=== PATIENT | male | born 1980 | race Two or more races ===

== ENCOUNTER 2023-08-26 13:37 | Inpatient (IN) | payer OTHER ==
[2023-08-26 14:30] VITALS: BMI 22.9
[2023-08-26] MEDS ORDERED: NALOXONE HCL (KLOXXADO) 8 MG SPRAY NS PRN (17:01)
[2023-08-26] MEDS ORDERED: ACETAMINOPHEN 325 MG TABLET (FP) PO PRN (17:01)
[2023-08-26] MEDS ORDERED: POLYETHYLENE GLYCOL (HEALTHYLAX) 3350 17 GM PACKET PO PRN (17:01)
[2023-08-26] MEDS ORDERED: BENZOCAINE/MENTHOL (CHLORASEPTIC ) LOZENGE MM PRN (17:01)
[2023-08-26] MEDS ORDERED: guaiFENesin 600 MG TABLET.ER (FP) PO PRN (17:01)
[2023-08-26] MEDS ORDERED: MAGNESIUM HYDROX 2400MG/30ML ORAL SUSPENSION 30 ML CUP PO PRN (17:01)
[2023-08-26] MEDS ORDERED: NALOXONE HCL 0.4 MG/ML VIAL IM PRN (17:01)
[2023-08-26] MEDS ORDERED: IBUPROFEN 400 MG TABLET (FP) PO PRN (17:01)
[2023-08-26] MEDS ORDERED: BENZONATATE 200 MG CAPSULE PO PRN (17:01)
[2023-08-26] MEDS ORDERED: ALBUTEROL SO4 HFA INHALER IH PRN (17:03)
[2023-08-26] MEDS: MELATONIN 5 MG TABLETS PO SCH (21:49)
[2023-08-26] MEDS: THIAMINE 100 MG TABLET PO SCH (21:49)
[2023-08-27] MEDS: METHOCARBAMOL 500 MG TABLET PO PRN (01:16)
[2023-08-27] MEDS: IBUPROFEN 600 MG TABLET (FP) PO PRN (01:16)
[2023-08-27] MEDS ORDERED: cloNIDine HCL 0.1 MG TABLET PO PRN (03:24)
[2023-08-27] MEDS: methaDONE HCL 10 MG TABLET (FOR DETOX USE ONLY) PO ONE ×2 (03:50→12:27)
[2023-08-27] MEDS: PRENATAL VITAMINS W/ FOLIC ACID TABLET (FP) PO SCH (09:52)
[2023-08-27 11:50] LABS: HEMATOCRIT 38.8 % (35.4-49); HEMOGLOBIN 12.4 GM/dL (11.7-16.9); MCH 23.3 pg (25.7-33.7); MCHC 31.9 g/dl (32.0-35.9); MEAN CELL VOLUME 73.1 fl (80-96); MEAN PLT VOLUME 7.7 fl (7.5-11.1); PLATELET COUNT 344 10^3/uL (134-434); RBC 5.31 M/mm3 (4.00-5.60); RDW 17.9 % (11.9-15.9); WHITE BLOOD COUNT 6.4 K/mm3 (4.0-10.0)
[2023-08-27 12:27] LABS: CHLORIDE 109 mmol/L (98-107); POTASSIUM 4.3 mmol/L (3.5-5.1); SODIUM 143 mmol/L (136-145)
[2023-08-27 12:33] LABS: ALBUMIN 2.9 g/dl (3.4-5.0); ANION GAP 4 mmol/L (4-13); BLOOD UREA NITROGEN 13.8 mg/dL (7-18); CO2 30 mmol/L (21-32); GLUCOSE,RANDOM 106 mg/dL (74-106)
[2023-08-27 12:34] LABS: TOT PROT 7.8 g/dl (6.4-8.2)
[2023-08-27 12:36] LABS: CREATININE 0.5 mg/dL (0.55-1.3); SGOT/AST 11 U/L (15-37); SGPT/ALT 24 U/L (13-61)
[2023-08-27 12:37] LABS: BILIRUBIN,TOTAL 0.2 mg/dL (0.2-1)
[2023-08-27 12:38] LABS: ALK PHOS 86 U/L (45-117)
[2023-08-27] MEDS: diazePAM 5 MG TABLET PO PRN (18:36)
[2023-08-27] MEDS: NICOTINE POLACRILEX 2 MG GUM BUC PRN (19:34)
[2023-08-28] MEDS: cloNIDine HCL 0.1 MG TABLET PO SCH (10:03)
[2023-08-28] MEDS: methaDONE HCL 10 MG TABLET PO ONE (10:03)
[2023-08-28] MEDS: NICOTINE 14 MG/24 HOURS TOPICAL PATCH TD SCH (10:04)
[2023-08-29] MEDS: methaDONE 40 MG, methaDONE 10 MG PO ONE (09:17)
[2023-08-29] MEDS ORDERED: methaDONE HCL 10 MG TABLET (FOR DETOX USE ONLY) PO ONE (10:00)
[2023-08-29] MEDS: GABAPENTIN 100 MG CAPSULE PO ONE (16:33)
[2023-08-29] MEDS: DICYCLOMINE HCL 10 MG CAPSULE PO PRN (19:45)
[2023-08-29] MEDS: LOPERAMIDE HCL 2 MG CAPSULE PO PRN (19:45)
[2023-08-29] MEDS: GABAPENTIN 100 MG CAPSULE PO SCH (23:22)
[2023-08-30] MEDS ORDERED: cloNIDine HCL 0.1 MG TABLET PO PRN
[2023-08-30] MEDS: methaDONE 40 MG, methaDONE 20 MG PO ONE (09:42)
[2023-08-30] MEDS: cloNIDine HCL 0.1 MG TABLET PO PRN (17:44)
[2023-08-30] MEDS: ONDANSETRON *ODT* 4 MG TABLET SL PRN (23:25)
[2023-08-31] MEDS: methaDONE 40 MG, methaDONE 30 MG PO ONE (09:09)
[2023-08-31] MEDS ORDERED: methaDONE HCL 10 MG TABLET (FOR DETOX USE ONLY) PO ONE (10:00)
[2023-08-31] MEDS: NICOTINE 21 MG/24 HOURS TOPICAL PATCH TD SCH (10:52)
[2023-08-31 12:34] LABS: HIV INTERPRETATION NEGATIVE (NEGATIVE)
[2023-08-31] MEDS: BISMUTH SUBSALICYLATE 524 MG/30 ML PO PRN (19:19)
[2023-08-31] MEDS: MAG HYDROX/AL HYDROX/SIMETH 30 ML UNIT-DOSE CUP PO PRN (20:30)
[2023-09-01] MEDS: methaDONE HCL 40 MG DISPERSABLE TABLET PO ONE (09:32)
[2023-09-01] MEDS: hydrOXYzine PAMOATE 25 MG CAPSULE (FP) PO PRN (21:52)
[2023-09-02 06:52] VITALS: BP 109/72; PULSE 88; RESP 16; TEMP 98.6
[2023-09-02] MEDS: methaDONE 80 MG, methaDONE 10 MG PO ONE (09:17)
== END 2023-09-02 09:50 | disposition home or self-care (01) | DRG 773 ==
LOC: YASAS 13:37 → Y3N 16:44
PROVIDERS: ADMIT Allergy & Immunology; ATTEND Surgery
PROC: HZ2ZZZZ Detoxification Services for Substance Abuse Treatment (ICD-10-PCS; principal; 2023-08-26)
DX: F11.23 Opioid dependence with withdrawal (principal); F14.20 Cocaine dependence, uncomplicated; F17.210 Nicotine dependence, cigarettes, uncomplicated; F41.9 Anxiety disorder, unspecified; J45.909 Unspecified asthma, uncomplicated; Z86.718 Personal history of other venous thrombosis and embolism; Z86.69 Personal history of other diseases of the nervous system and sense organs; Z59.00 Homelessness unspecified
CPT/HCPCS: 36415; 80053; 80305; 80307; 85027; 86780; 87389; 93005; 93010; Q0162

== ENCOUNTER 2024-01-21 13:39 | Inpatient (IN) | payer OTHER ==
[2024-01-21 14:29] VITALS: BMI 21.8
[2024-01-21] MEDS ORDERED: hydrOXYzine PAMOATE 25 MG CAPSULE (FP) PO PRN (16:04)
[2024-01-21] MEDS ORDERED: BISMUTH SUBSALICYLATE 524 MG/30 ML PO PRN (16:04)
[2024-01-21] MEDS ORDERED: MAGNESIUM HYDROX 2400MG/30ML ORAL SUSPENSION 30 ML CUP PO PRN (16:04)
[2024-01-21] MEDS ORDERED: IBUPROFEN 400 MG TABLET (FP) PO PRN (16:04)
[2024-01-21] MEDS ORDERED: DICYCLOMINE HCL 10 MG CAPSULE PO PRN (16:04)
[2024-01-21] MEDS ORDERED: LOPERAMIDE HCL 2 MG CAPSULE PO PRN (16:04)
[2024-01-21] MEDS ORDERED: ACETAMINOPHEN 325 MG TABLET (FP) PO PRN (16:04)
[2024-01-21] MEDS ORDERED: NALOXONE (NARCAN) HCL 4 MG/0.1 ML SPRAY NS PRN (16:04)
[2024-01-21] MEDS ORDERED: MAG HYDROX/AL HYDROX/SIMETH 30 ML UNIT-DOSE CUP PO PRN (16:04)
[2024-01-21] MEDS ORDERED: BENZONATATE 200 MG CAPSULE PO PRN (16:04)
[2024-01-21] MEDS ORDERED: ONDANSETRON *ODT* 4 MG TABLET SL PRN (16:04)
[2024-01-21] MEDS ORDERED: guaiFENesin 600 MG TABLET.ER (FP) PO PRN (16:04)
[2024-01-21] MEDS ORDERED: BENZOCAINE/MENTHOL (CHLORASEPTIC ) LOZENGE MM PRN (16:04)
[2024-01-21] MEDS ORDERED: POLYETHYLENE GLYCOL (HEALTHYLAX) 3350 17 GM PACKET PO PRN (16:04)
[2024-01-22] MEDS: THIAMINE 100 MG TABLET PO SCH (01:08)
[2024-01-22] MEDS: PRENATAL VITAMINS W/ FOLIC ACID TABLET (FP) PO SCH (01:08)
[2024-01-22] MEDS: MELATONIN 5 MG TABLETS PO SCH (01:08)
[2024-01-22] MEDS: methaDONE HCL 10 MG TABLET PO ONE (11:07)
[2024-01-22 12:26] LABS: HEMOGLOBIN 13.1 GM/dL (11.7-16.9); MCH 24.7 pg (25.7-33.7); MCHC 31.3 g/dl (32.0-35.9); MEAN CELL VOLUME 78.9 fl (80-96); MEAN PLT VOLUME 7.9 fl (7.5-11.1); PLATELET COUNT 340 10^3/uL (134-434); RBC 5.32 M/mm3 (4.00-5.60); RDW 16.7 % (11.9-15.9); WHITE BLOOD COUNT 5.8 K/mm3 (4.0-10.0)
[2024-01-22] MEDS ORDERED: methaDONE HCL 10 MG TABLET PO PRN (12:48)
[2024-01-22 13:08] LABS: CHLORIDE 108 mmol/L (98-107); SODIUM 141 mmol/L (136-145)
[2024-01-22 13:10] LABS: ALBUMIN 3.2 g/dl (3.4-5.0); ANION GAP 4 mmol/L (4-13); CALCIUM 9.5 mg/dL (8.5-10.1); CO2 29 mmol/L (21-32); GLUCOSE,RANDOM 106 mg/dL (74-106)
[2024-01-22 13:13] LABS: CREATININE 0.4 mg/dL (0.55-1.3); SGOT/AST 20 U/L (15-37); SGPT/ALT 34 U/L (13-61)
[2024-01-22 13:15] LABS: BILIRUBIN,TOTAL 0.2 mg/dL (0.2-1)
[2024-01-22 13:16] LABS: ALK PHOS 89 U/L (45-117)
[2024-01-22] MEDS: cloNIDine HCL 0.1 MG TABLET PO SCH (13:34)
[2024-01-23] MEDS: methaDONE 40 MG, methaDONE 10 MG PO ONE (09:22)
[2024-01-23] MEDS: NICOTINE 21 MG/24 HOURS TOPICAL PATCH TD SCH (11:11)
[2024-01-23] MEDS: GABAPENTIN 100 MG CAPSULE PO ONE (14:43)
[2024-01-23] MEDS: GABAPENTIN 100 MG CAPSULE PO SCH (22:13)
[2024-01-24] MEDS ORDERED: cloNIDine HCL 0.1 MG TABLET PO PRN
[2024-01-24] MEDS: methaDONE 40 MG, methaDONE 20 MG PO ONE (10:12)
[2024-01-24] MEDS: FLU VACCINE (FLULAVAL) PF 45 MCG/0.5 ML SYRINGE 2024-2025 IM ONE (12:17)
[2024-01-25] MEDS: methaDONE 40 MG, methaDONE 30 MG PO ONE (09:58)
[2024-01-25] MEDS: SUVOREXANT 10 MG TABLET PO PRN (23:12)
[2024-01-26] MEDS: methaDONE HCL 40 MG DISPERSABLE TABLET PO ONE (09:33)
[2024-01-26] MEDS: CEPHALEXIN MONOHYDRATE 500 MG CAPSULE (UD) PO SCH (13:20)
[2024-01-27] MEDS: NALOXONE (NYS OPIOID OVERDOSE PROGRAM) 4 MG/0.1 ML SPRAY NS PRN (09:04)
[2024-01-27] MEDS: methaDONE 80 MG, methaDONE 10 MG PO ONE (10:06)
[2024-01-27] MEDS: IBUPROFEN 600 MG TABLET (FP) PO PRN (15:14)
[2024-01-27] MEDS: METHOCARBAMOL 500 MG TABLET PO PRN (15:15)
[2024-01-27] MEDS ORDERED: ZINC OXIDE 20% TOPICAL OINTMENT 30 GM TUBE TP ONE (16:00)
[2024-01-27] MEDS: ZINC OXIDE 20% TOPICAL OINTMENT 30 GM TUBE TP SCH (16:05)
[2024-01-28] MEDS: methaDONE 80 MG, methaDONE 10 MG PO ONE (12:51)
[2024-01-28 17:22] VITALS: BP 126/75; PULSE 87; RESP 17; TEMP 97.6
== END 2024-01-28 17:07 | disposition other institution (70) | DRG 773 ==
LOC: YASAS 13:39 → Y6N 23:40
PROVIDERS: ADMIT Allergy & Immunology; ATTEND Surgery
PROC: HZ2ZZZZ Detoxification Services for Substance Abuse Treatment (ICD-10-PCS; principal; 2024-01-21)
DX: F11.23 Opioid dependence with withdrawal (principal); F14.20 Cocaine dependence, uncomplicated; F17.210 Nicotine dependence, cigarettes, uncomplicated; F13.20 Sedative, hypnotic or anxiolytic dependence, uncomplicated; F19.282 Other psychoactive substance dependence with psychoactive substance-induced sleep disorder; J45.909 Unspecified asthma, uncomplicated; L03.115 Cellulitis of right lower limb; Z86.718 Personal history of other venous thrombosis and embolism; Z56.0 Unemployment, unspecified; Z59.00 Homelessness unspecified
CPT/HCPCS: 36415; 80053; 80305; 80307; 82962; 85027; 86780; 87811; 90656; 93005; 93010; G0009

== ENCOUNTER 2024-01-21 19:57 | Emergency (ER) | payer OTHER ==
[2024-01-21 20:35] VITALS: BP 162/99; PULSE 72; RESP 16; TEMP 97.1; BMI 24.4
== END 2024-01-21 21:53 | disposition home or self-care (01) ==
LOC: JER 19:57
DX: F14.90 Cocaine use, unspecified, uncomplicated (principal); F11.90 Opioid use, unspecified, uncomplicated
CPT/HCPCS: 99283-25

== ENCOUNTER 2024-01-28 17:15 | Inpatient (IN) | payer OTHER ==
[2024-01-28] MEDS ORDERED: hydrOXYzine PAMOATE 25 MG CAPSULE (FP) PO PRN (18:28)
[2024-01-28] MEDS ORDERED: BENZONATATE 200 MG CAPSULE PO PRN (18:28)
[2024-01-28] MEDS ORDERED: guaiFENesin 600 MG TABLET.ER (FP) PO PRN (18:28)
[2024-01-28] MEDS ORDERED: MAG HYDROX/AL HYDROX/SIMETH 30 ML UNIT-DOSE CUP PO PRN (18:28)
[2024-01-28] MEDS ORDERED: BENZOCAINE/MENTHOL (CHLORASEPTIC ) LOZENGE MM PRN (18:28)
[2024-01-28] MEDS ORDERED: ACETAMINOPHEN 325 MG TABLET (FP) PO PRN (18:28)
[2024-01-28] MEDS ORDERED: MAGNESIUM HYDROX 2400MG/30ML ORAL SUSPENSION 30 ML CUP PO PRN (18:28)
[2024-01-28] MEDS ORDERED: IBUPROFEN 400 MG TABLET (FP) PO PRN (18:28)
[2024-01-28] MEDS ORDERED: NALOXONE HCL 0.4 MG/ML VIAL IVPUSH PRN (18:28)
[2024-01-28] MEDS ORDERED: POLYETHYLENE GLYCOL (HEALTHYLAX) 3350 17 GM PACKET PO PRN (18:28)
[2024-01-28] MEDS ORDERED: METHOCARBAMOL 500 MG TABLET PO PRN (18:28)
[2024-01-28] MEDS ORDERED: NALOXONE (NARCAN) HCL 4 MG/0.1 ML SPRAY NS PRN (18:28)
[2024-01-28] MEDS: GABAPENTIN 100 MG CAPSULE PO SCH (21:22)
[2024-01-28] MEDS: CEPHALEXIN MONOHYDRATE 500 MG CAPSULE (UD) PO SCH (21:22)
[2024-01-28] MEDS: THIAMINE 100 MG TABLET PO SCH (21:22)
[2024-01-28] MEDS: MELATONIN 5 MG TABLETS PO SCH (21:22)
[2024-01-28] MEDS: ZINC OXIDE 20% TOPICAL OINTMENT 30 GM TUBE TP SCH (21:23)
[2024-01-28] MEDS: SUVOREXANT 10 MG TABLET PO ONE (22:52)
[2024-01-29] MEDS: PRENATAL VITAMINS W/ FOLIC ACID TABLET (FP) PO SCH (10:29)
[2024-01-29] MEDS: NICOTINE 14 MG/24 HOURS TOPICAL PATCH TD SCH (10:29)
[2024-01-29] MEDS ORDERED: methaDONE HCL 10 MG TABLET PO SCH (13:00)
[2024-01-29] MEDS: methaDONE 80 MG, methaDONE 10 MG PO SCH (13:26)
[2024-01-29] MEDS: SUVOREXANT 15 MG TABLET PO PRN (21:44)
[2024-01-30] MEDS: LOPERAMIDE HCL 2 MG CAPSULE PO PRN (01:37)
[2024-01-30] MEDS ORDERED: ALBUTEROL SO4 HFA INHALER IH PRN (12:28)
[2024-01-30] MEDS: CLINDAMYCIN PHOSPHATE 1% TOPICAL GEL 30 GM TUBE TP SCH (14:36)
[2024-02-01] MEDS: NICOTINE POLACRILEX 2 MG GUM BUC PRN (10:13)
[2024-02-02] MEDS: NICOTINE 21 MG/24 HOURS TOPICAL PATCH TD SCH (09:43)
[2024-02-02] MEDS: SUVOREXANT 15 MG TABLET PO PRN (21:10)
[2024-02-02] MEDS ORDERED: SUVOREXANT 15 MG TABLET PO PRN (22:00)
[2024-02-03] MEDS: PNEUMOC 20-VAL CONJ-DIP CRM/PF 0.5 ML SYRINGE IM ONE (12:30)
[2024-02-04] MEDS: IBUPROFEN 600 MG TABLET (FP) PO PRN (09:48)
[2024-02-04] MEDS: BACLOFEN 10 MG TABLET (FP) PO SCH (21:29)
[2024-02-05] MEDS: traZODone HCL 100 MG TABLET (FP) PO SCH (21:29)
[2024-02-05] MEDS ORDERED: SUVOREXANT 15 MG TABLET PO PRN (22:00)
[2024-02-06] MEDS: traZODone HCL 50 MG TABLET (FP) PO SCH (21:06)
[2024-02-09] MEDS: traZODone HCL 100 MG TABLET (FP) PO SCH (21:18)
[2024-02-10] MEDS: methaDONE 80 MG, methaDONE 10 MG PO SCH (06:21)
[2024-02-11] MEDS: AMOXICILLIN 500 MG CAPSULE (FP) PO SCH (13:31)
[2024-02-19] MEDS: GABAPENTIN 300 MG CAPSULE PO SCH (15:57)
[2024-02-19] MEDS: NICOTINE POLACRILEX 4 MG GUM BUC PRN (15:59)
[2024-02-19] MEDS: LIDOCAINE PATCH REMOVAL MC SCH (21:06)
[2024-02-19] MEDS: METHYL SALICYLATE/MENTHOL 30 GM TUBE TP SCH (21:06)
[2024-02-20] MEDS: NICOTINE POLACRILEX 4 MG LOZENGE BC PRN (06:13)
[2024-02-20] MEDS: LIDOCAINE 5% TOPICAL PATCH TP SCH (10:43)
[2024-02-22] MEDS: HYDROCORTISONE 0.5% TOPICAL CREAM 30 GM TUBE TP PRN (09:55)
[2024-02-22] MEDS: BENZOCAINE 20 % GEL TUBE MM PRN (13:27)
[2024-02-23 06:58] VITALS: RESP 16
[2024-02-24] MEDS ORDERED: methaDONE HCL 10 MG TABLET PO SCH (06:00)
[2024-02-24] MEDS: methaDONE 80 MG, methaDONE 10 MG PO SCH (06:17)
[2024-02-25 07:47] VITALS: TEMP 97.8
[2024-02-26 06:44] VITALS: BP 109/68; PULSE 98
[2024-02-26] MEDS: NALOXONE (NYS OPIOID OVERDOSE PROGRAM) 4 MG/0.1 ML SPRAY NS SCH (09:21)
== END 2024-02-26 09:35 | disposition home or self-care (01) | DRG 772 ==
LOC: YASAS 17:15 → Y3W 17:20
PROVIDERS: ADMIT Psychiatry & Neurology Pain Medicine; ATTEND Psychiatry & Neurology Pain Medicine
PROC: HZ42ZZZ Group Counseling for Substance Abuse Treatment, Cognitive-Behavioral (ICD-10-PCS; principal; 2024-01-28)
DX: F11.20 Opioid dependence, uncomplicated (principal); F14.10 Cocaine abuse, uncomplicated; F17.210 Nicotine dependence, cigarettes, uncomplicated; F19.282 Other psychoactive substance dependence with psychoactive substance-induced sleep disorder; G40.909 Epilepsy, unspecified, not intractable, without status epilepticus; J45.909 Unspecified asthma, uncomplicated; K08.89 Other specified disorders of teeth and supporting structures; L03.115 Cellulitis of right lower limb; M54.17 Radiculopathy, lumbosacral region
CPT/HCPCS: 90677; J0475

== ENCOUNTER 2024-04-02 14:04 | Inpatient (IN) | payer OTHER ==
[2024-04-02 14:29] VITALS: BMI 23.5
[2024-04-02] MEDS ORDERED: cloNIDine HCL 0.1 MG TABLET PO PRN (14:35)
[2024-04-02] MEDS ORDERED: methaDONE HCL 10 MG TABLET (FOR DETOX USE ONLY) PO PRN (14:35)
[2024-04-02] MEDS ORDERED: DICYCLOMINE HCL 10 MG CAPSULE PO PRN (14:47)
[2024-04-02] MEDS ORDERED: MAGNESIUM HYDROX 2400MG/30ML ORAL SUSPENSION 30 ML CUP PO PRN (14:47)
[2024-04-02] MEDS ORDERED: P-EPHED 60MG/TRIPROLIDI 2.5MG TABLET PO PRN (14:47)
[2024-04-02] MEDS ORDERED: ACETAMINOPHEN 325 MG TABLET (FP) PO PRN (14:47)
[2024-04-02] MEDS ORDERED: IBUPROFEN 400 MG TABLET (FP) PO PRN (14:47)
[2024-04-02] MEDS ORDERED: NALOXONE (NARCAN) HCL 4 MG/0.1 ML SPRAY NS PRN (14:47)
[2024-04-02] MEDS ORDERED: BISMUTH SUBSALICYLATE 262 MG/15 ML BTL PO PRN (14:47)
[2024-04-02] MEDS ORDERED: ONDANSETRON *ODT* 4 MG TABLET SL PRN (14:47)
[2024-04-02] MEDS ORDERED: guaiFENesin 600 MG TABLET.ER (FP) PO PRN (14:47)
[2024-04-02] MEDS ORDERED: POLYETHYLENE GLYCOL (HEALTHYLAX) 3350 17 GM PACKET PO PRN (14:47)
[2024-04-02] MEDS ORDERED: NICOTINE POLACRILEX 2 MG LOZENGE BC PRN (14:47)
[2024-04-02] MEDS ORDERED: BENZOCAINE/MENTHOL (CHLORASEPTIC ) LOZENGE MM PRN (14:47)
[2024-04-02] MEDS ORDERED: BENZONATATE 200 MG CAPSULE PO PRN (14:47)
[2024-04-02] MEDS: methaDONE HCL 10 MG TABLET (FOR DETOX USE ONLY) PO ONE (17:15)
[2024-04-02] MEDS: NICOTINE POLACRILEX 2 MG GUM BUC PRN (18:08)
[2024-04-02] MEDS ORDERED: ALBUTEROL SO4 HFA INHALER IH PRN (18:40)
[2024-04-02] MEDS: MELATONIN 5 MG TABLETS PO SCH (22:19)
[2024-04-02] MEDS: THIAMINE 100 MG TABLET PO SCH (22:19)
[2024-04-03] MEDS: PRENATAL VITAMINS W/ FOLIC ACID TABLET (FP) PO SCH (09:14)
[2024-04-03 10:54] LABS: HEMATOCRIT 40.7 % (35.4-49); HEMOGLOBIN 12.8 GM/dL (11.7-16.9); MCH 25.5 pg (25.7-33.7); MCHC 31.4 g/dl (32.0-35.9); MEAN CELL VOLUME 81.3 fl (80-96); MEAN PLT VOLUME 7.6 fl (7.5-11.1); PLATELET COUNT 363 10^3/uL (134-434); RBC 5.01 M/mm3 (4.00-5.60); RDW 18.2 % (11.9-15.9); WHITE BLOOD COUNT 7.8 K/mm3 (4.0-10.0)
[2024-04-03 11:01] LABS: POTASSIUM 4.2 mmol/L (3.5-5.1)
[2024-04-03 11:11] LABS: ALBUMIN 3.1 g/dl (3.4-5.0); BLOOD UREA NITROGEN 12.4 mg/dL (7-18); CALCIUM 9.2 mg/dL (8.5-10.1)
[2024-04-03 11:15] LABS: CREATININE 0.6 mg/dL (0.55-1.3)
[2024-04-03 11:16] LABS: BILIRUBIN,TOTAL 0.4 mg/dL (0.2-1); TOT PROT 7.1 g/dl (6.4-8.2)
[2024-04-03] MEDS: NICOTINE 21 MG/24 HOURS TOPICAL PATCH TD SCH (11:41)
[2024-04-03 12:05] LABS: HIV INTERPRETATION NEGATIVE (NEGATIVE)
[2024-04-03] MEDS: GABAPENTIN 300 MG CAPSULE PO SCH (13:22)
[2024-04-03] MEDS: IBUPROFEN 600 MG TABLET (FP) PO PRN (15:29)
[2024-04-03] MEDS: METHOCARBAMOL 500 MG TABLET PO PRN (22:04)
[2024-04-04] MEDS: methaDONE 40 MG, methaDONE 10 MG PO ONE (09:18)
[2024-04-04] MEDS ORDERED: methaDONE HCL 10 MG TABLET (FOR DETOX USE ONLY) PO ONE (10:00)
[2024-04-04] MEDS: hydrOXYzine PAMOATE 25 MG CAPSULE (FP) PO PRN (11:22)
[2024-04-04] MEDS: LIDOCAINE 4% PATCH TP SCH (14:10)
[2024-04-04] MEDS: NICOTINE POLACRILEX 4 MG GUM BUC PRN (15:28)
[2024-04-04] MEDS: LIDOCAINE PATCH REMOVAL MC SCH (21:48)
[2024-04-05] MEDS: methaDONE 40 MG, methaDONE 20 MG PO ONE (09:37)
[2024-04-05] MEDS: BENZOCAINE 20 % GEL TUBE MM PRN (11:30)
[2024-04-05] MEDS: traZODone HCL 100 MG TABLET (FP) PO SCH (21:33)
[2024-04-06] MEDS: NALOXONE (NYS OPIOID OVERDOSE PROGRAM) 4 MG/0.1 ML SPRAY NS SCH (09:25)
[2024-04-06] MEDS: methaDONE 40 MG, methaDONE 30 MG PO ONE (09:29)
[2024-04-06] MEDS ORDERED: methaDONE HCL 10 MG TABLET (FOR DETOX USE ONLY) PO ONE (10:00)
[2024-04-06] MEDS: NICOTINE POLACRILEX 4 MG LOZENGE BC PRN (17:15)
[2024-04-06] MEDS: LOPERAMIDE HCL 2 MG CAPSULE PO PRN (18:29)
[2024-04-07 09:26] VITALS: RESP 16; TEMP 96.9
[2024-04-07] MEDS: methaDONE HCL 40 MG DISPERSABLE TABLET PO ONE (09:28)
[2024-04-07] MEDS: MAG HYDROX/AL HYDROX/SIMETH 30 ML UNIT-DOSE CUP PO PRN (10:27)
[2024-04-07 13:24] VITALS: BP 101/68; PULSE 91
== END 2024-04-07 13:50 | disposition home or self-care (01) | DRG 773 ==
LOC: YASAS 14:04 → Y6N 14:59
PROVIDERS: ADMIT Allergy & Immunology; ATTEND Family Medicine Addiction Medicine
PROC: HZ2ZZZZ Detoxification Services for Substance Abuse Treatment (ICD-10-PCS; principal; 2024-04-02)
DX: F11.23 Opioid dependence with withdrawal (principal); F14.20 Cocaine dependence, uncomplicated; F17.210 Nicotine dependence, cigarettes, uncomplicated; F19.282 Other psychoactive substance dependence with psychoactive substance-induced sleep disorder; F41.9 Anxiety disorder, unspecified; J45.909 Unspecified asthma, uncomplicated; R76.8 Other specified abnormal immunological findings in serum; Z86.718 Personal history of other venous thrombosis and embolism; Z56.0 Unemployment, unspecified; Z59.00 Homelessness unspecified
CPT/HCPCS: 36415; 80053; 80305; 80307; 83036; 85027; 86803; 87389; 87522; 87811